=== PATIENT | female | born 1935 | race Caucasian/White ===

== ENCOUNTER → 2019-10-20 | Outpatient (CLI) | payer MEDICARE ==
[~2019-10-20] MED LIST: ASPIR-LOW81 MG PO; ASPIRIN 32325 MG/TAB PO; FISH OIL CONC1000 MG PO; FISH OIL CONCEN1 SG1 PO; IRON325 M1 PO; LEVOTHYROXIN0.088 MG PO; LEVOXYL0.088 MG PO; LIPITOR20 MG PO; LISINOPRIL/HCTZ1 TA2 PO; NITROSTAT0.4 MG/TAB SL; OSCAL 500MG/VI500 MG PO; PLAVIX 75MG TAB75 MG PO; PREDNISONE 5MG5 MG PO; TENORMIN 2525 MG/TAB PO; VITAMIN D; VITAMIN D1000 IU PO; ZESTRIL 5MG5 MG PO
== END ==
LOC: COL.RAD 10:13
DX: Z01.812 Encounter for preprocedural laboratory examination (principal); N28.1 Cyst of kidney, acquired; N18.4 Chronic kidney disease, stage 4 (severe)
CPT/HCPCS: A9585

== ENCOUNTER 2021-01-02 10:36 | Emergency (ER) | payer MEDICARE ==
[~2021-01-02] VITALS: Ht 177.8 cm; Wt 63.6 kg
[2021-01-02 10:40] VITALS: TEMP 96.8
[2021-01-02] MEDS ORDERED: SALONPAS1 EACH TP (11:44)
[2021-01-02 12:13] VITALS: BP 140/71; PULSE 82
== END 2021-01-02 12:15 | disposition home or self-care (01) ==
LOC: COL.ER 10:36
DX: M25.511 Pain in right shoulder (principal); M25.512 Pain in left shoulder; M19.09 Primary osteoarthritis, other specified site; I25.10 Atherosclerotic heart disease of native coronary artery without angina pectoris; I10 Essential (primary) hypertension; Z95.5 Presence of coronary angioplasty implant and graft; Z79.02 Long term (current) use of antithrombotics/antiplatelets; Z79.82 Long term (current) use of aspirin; Z79.890 Hormone replacement therapy

== ENCOUNTER 2021-06-24 09:19 | Day surgery (SDC) | payer MEDICARE ==
[~2021-06-24] VITALS: Ht 177.8 cm; Wt 60.9 kg
[2021-06-24] VITALS (10 sets, daily range): BP systolic 113–166; BP diastolic 47–82; PULSE 50–65; TEMP 98.2
[~2021-06-24 09:19] MED LIST changes: +LEVOXYL0.075 MG PO; -LEVOXYL0.088 MG PO; +SALONPAS1 EACH TP
[2021-06-24] MEDS ORDERED: CENTRUM SILVER1 CTB PO (10:14)
[2021-06-24] MEDS ORDERED: OS-CAL 500 + D1 TAB (10:15)
[2021-06-24 10:38] LABS: MEAN CELL VOLUME 94 fl (80.0-100.0); MEAN CORPUSCULAR HEMOGLOBIN 30 pg (27.0-31.0); MEAN CORPUSCULAR HGB CONC 32 g/dl (33.0-37.0); PLATELET COUNT 182 K/mm3 (130-400); RED BLOOD COUNT 3.67 M/mm3 (4.10-5.30); REDCELL DISTRIBUTION WIDTH-CV 14.7 % (11.5-14.5)
[2021-06-24 10:45] LABS: HEMATOCRIT 34.3 % (37.0-47.0)
[2021-06-24 10:46] LABS: PROTHROMBIN TIME 11.6 SECONDS (9.7-12.8)
[2021-06-24 10:48] LABS: PARTIAL THROMBOPLASTIN TIME 27.6 SECONDS (26.0-37.0)
[2021-06-24 10:54] LABS: CALCIUM 10.3 mg/dL (8.4-10.2); CREATININE, serum 1.38 (0.52-1.25); POTASSIUM 3.6 mmol/L (3.4-5.0)
--- NOTE | 2021-06-24 12:36 | NUR ---
Patient noted to have large purple bruising to right radial area of wrist. Soft to touch, patient states "That's been there a little bit".
--- NOTE | 2021-06-24 13:00 | NUR ---
PT TO EU 11 VIA BED FROM ROSE GRADER, PT IS AWAKE, FOLLOWS DIRECTIONS, ROSE GRADER NURSE STATES DR CALLED SON ON RESULTS. CALL LIGHT IN REACH, PT RESTS QUIETLY IN BED, DECLINES DRINK AT THIS TIME
[2021-06-24] MEDS ORDERED: LIPITOR20 MG PO (13:01)
[2021-06-24] MEDS ORDERED: COREG 3.123.125 MG/T PO (13:01)
[2021-06-24] MEDS ORDERED: PRINIVIL5 MG PO (13:02)
--- NOTE | 2021-06-24 14:00 | NUR ---
PT CON'T TO REST IN BED, HAS NO C/O, OFFERED WATER, DECLINES AT THIS TIME
--- NOTE | 2021-06-24 15:00 | NUR ---
STARTING RELEASE OF BAND 2CC AT A TIME, NO BLEEDING OR SWELLING NOTED. BAND RELEASED FULLY AFTER 30 MIN. BANDAID ON WITH COBAN, PT SITS ON SIDE OF BED, TOLERATES WELL, WALKED TO B/R TO VOID, GAIT STEADY,
--- NOTE | 2021-06-24 15:45 | NUR ---
IV D'CD INTACT, PT UP AND DRESSED, SON HERE FOR MERCURY PURIFIER AND REVIEW OF DISCHARGE ORDERS, REVIEWED NEXT APPT, ALSO NEW RX TO PICKUP AT PHARMACY AND CHANGE OF LIPITOR DOSE EXPLAINED. ALSO REVIEWED ACTIVITY FOR PT AND LIMIT USE OF RIGHT WRIST WITH VERBAL UNDERSTANDING. PT HAS NO C/O OR QUESTIONS DISCHARGED VIA W/C TO CAR WITH SON AT 1610
== END 2021-06-24 16:10 | disposition home or self-care (01) ==
LOC: COL.CAR 09:19
PROVIDERS: Internal Medicine Cardiovascular Disease
DX: I25.10 Atherosclerotic heart disease of native coronary artery without angina pectoris (principal); I34.0 Nonrheumatic mitral (valve) insufficiency; I13.10 Hypertensive heart and chronic kidney disease without heart failure, with stage 1 through stage 4 chronic kidney disease, or unspecified chronic kidney disease; N18.4 Chronic kidney disease, stage 4 (severe); I73.9 Peripheral vascular disease, unspecified; I42.9 Cardiomyopathy, unspecified; I87.2 Venous insufficiency (chronic) (peripheral); E78.2 Mixed hyperlipidemia; E03.9 Hypothyroidism, unspecified; Z20.822 Contact with and (suspected) exposure to COVID-19; Z79.890 Hormone replacement therapy; Z79.82 Long term (current) use of aspirin; Z79.899 Other long term (current) drug therapy
CPT/HCPCS: C1769; J1644; J2250; J3010; Q9967

== ENCOUNTER 2023-01-03 17:43 | Inpatient (IN) | payer MEDICARE ==
[~2023-01-03] VITALS: Ht 160 cm; Wt 60.9 kg
[~2023-01-03 17:43] MED LIST changes: -ASPIRIN 32325 MG/TAB PO; +ASPIRIN 81M81 MG/TA2 PO; +CENTRUM SILVER1 CTB PO; +COREG 3.123.125 MG/T PO; +EPA FISH OIL1 SGL PO; -FISH OIL CONCEN1 SG1 PO; +OS-CAL 500 + D1 TAB; +PRINIVIL5 MG PO
[2023-01-03 19:23] LABS: BASO % 0.3 % (0.0-2.0); EOS # 0.2 K/mm3 (0.0-0.7); EOS % 1.3 % (0.0-4.0); GRAN # 9.4 K/mm3 (1.4-6.5); GRAN % 71.9 % (42.2-75.2); LYMPH % 15.4 % (20.0-51.0); MEAN CELL VOLUME 91 fl (80.0-100.0); MEAN CORPUSCULAR HEMOGLOBIN 30 pg (27-31); MEAN CORPUSCULAR HGB CONC 33 g/dl (33.0-37.0); MEAN PLATELET VOLUME 11.9 fl (7.4-10.4); MONO # 1.4 K/mm3 (0.1-0.6); MONO % 10.5 % (1.7-9.3); PLATELET COUNT 250 K/mm3 (130-400); REDCELL DISTRIBUTION WIDTH-CV 13.5 % (11.5-14.5)
[2023-01-03 19:25] LABS: HEMATOCRIT 33.5 % (37.0-47.0)
[2023-01-03 19:39] LABS: ALBUMIN 2.9 gm/dL (3.4-4.8); C-REACTIVE PROTEIN 9.02 mg/dL (0.00-0.50); CALCIUM 10.4 mg/dL (8.4-10.2); CREATININE, serum 2.05 mg/dL (0.57-1.11); POTASSIUM 3.6 mmol/L (3.5-4.5); TOTAL PROTEIN 7.9 gm/dL (6.2-8.1)
[2023-01-03 20:20] LABS: ERYTHROCYTE SEDIMENTATION RATE 123 mm/hr (0-30)
[2023-01-03 22:48] VITALS: BP 106/62; PULSE 88; TEMP 98.1
[2023-01-03] MEDS ORDERED: SANTYL30 TP (23:11)
[2023-01-03] MEDS ORDERED: VITAMIND3 5000 PO (23:11)
[2023-01-03] MEDS ORDERED: LASIX 20MG TABL20 MG PO (23:14)
[2023-01-03] MEDS ORDERED: KLOR-CON SPRIN10 MEQ PO (23:14)
[2023-01-03] MEDS ORDERED: NATURAL E400 IU PO (23:17)
[2023-01-03] MEDS ORDERED: IRON TABLETS325 MG PO (23:17)
[2023-01-03] MEDS ORDERED: LIPITOR 80MG80 MG PO (23:19)
[2023-01-03] MEDS ORDERED: SYNTHROID0.075 MG/T PO (23:20)
[2023-01-03] MEDS ORDERED: TYLENOL 325MG325 MG PO (23:21)
--- NOTE | 2023-01-03 23:32 | NUR ---
Patient arrived to medical unit from ER at approximately 2235. Alert, disoriented to time, place, and situation. Denies pain and discomfort. Would to left medical ankle, open to air. Black eschar present. Has small open sores to top of right foot. Received IV ABX per orders in ER. In bed with call light within reach. High fall risk precautions in place.
--- NOTE | 2023-01-04 01:12 | NUR ---
Vancomycin Initial Dosing Pharmacy Note Ordering provider: Ramakrishna James MD Indication/duration: Concern for osteomylitis x 7 days Relevant comorbidities: LABS: WBC = 13.0, SCr = 2.05 Recommendation: Will draw troughs and follow levels. Loading dose: 1 gram Maintenance dose: 500 mg every 24 hours Trough goal: 15-20 ug/mL
[2023-01-04 03:00] LABS: BASO % 0.4 % (0.0-2.0); EOS # 0.2 K/mm3 (0.0-0.7); EOS % 1.8 % (0.0-4.0); GRAN # 6.3 K/mm3 (1.4-6.5); LYMPH # 1.9 K/mm3 (1.2-3.4); LYMPH % 20.2 % (20.0-51.0); MEAN CELL VOLUME 91 fl (80.0-100.0); MEAN CORPUSCULAR HGB CONC 33 g/dl (33.0-37.0); MEAN PLATELET VOLUME 11.6 fl (7.4-10.4); MONO # 1.2 K/mm3 (0.1-0.6); MONO % 12.1 % (1.7-9.3); PLATELET COUNT 212 K/mm3 (130-400); RED BLOOD COUNT 3.24 M/mm3 (4.10-5.30); REDCELL DISTRIBUTION WIDTH-CV 13.3 % (11.5-14.5)
[2023-01-04 03:04] LABS: HEMATOCRIT 29.5 % (37.0-47.0); HEMOGLOBIN 9.6 g/dl (12.5-16.0); MEAN CORPUSCULAR HEMOGLOBIN 30 pg (27-31)
[2023-01-04 03:07] LABS: INR 1.2 (0.8-3.0); PROTHROMBIN TIME 13.7 SECONDS (9.7-12.8)
[2023-01-04 03:10] LABS: PARTIAL THROMBOPLASTIN TIME 26.1 SECONDS (26.0-37.0)
[2023-01-04 03:13] LABS: CALCIUM 9.5 mg/dL (8.4-10.2); CREATININE, serum 1.81 mg/dL (0.57-1.11); POTASSIUM 3.2 mmol/L (3.5-4.5)
[2023-01-04 03:57] VITALS: BP 125/49; PULSE 55; TEMP 98.2
--- NOTE | 2023-01-04 05:47 | NUR ---
Patient refused had refused lab draw and IV ABX/Heparin drip around 0245. Called son James to help talk with patient, and she became agreeable to have labs drawn and start IV medications. Patient denies pain and discomfort. Voices no questions, needs, or concerns at this time. In bed with call light within reach. High fall risk precautions in place. Bed alarm on.
[2023-01-04 07:55] VITALS: BP 113/38; PULSE 59; TEMP 98.4
--- NOTE | 2023-01-04 07:56 | NUR ---
Patient resting on her side. LLE out of bed. She asks for help to use the commode. Assisted. Getting Hep gtt per orders. Telemetry in place, NSR. Bed alarm on, no further needs at this time. Call light within reach.
--- NOTE | 2023-01-04 09:00 | NUR ---
Patient is resting in bed, family at the bedside. Alert and oriented, telemetry in place, NSR, getting Hep gtt per orders. Awaiting for doctors for further trearment. Assessment completed, meds provided, no other needs at this time, call light within reach.
--- NOTE | 2023-01-04 10:13 | NUR ---
Initial visit; Patient's family greeted Air Valve Repairer and patient said "hello," in a painful sounding voice. She asked Air Valve Repairer to be careful and not touch her leg which was outside the covers off of her bed. Air Valve Repairer asked if she could pray or keep her in Air Valve Repairer's prayers. She agreed to let Air Valve Repairer keep her in her prayers.
--- NOTE | 2023-01-04 10:14 | NUR ---
HEP XA LAB HIGH 1.64 it is stopped and will wait for 2 hrs.
--- NOTE | 2023-01-04 10:57 | NUR ---
DAVON met with the patient and her son, Matt (ph#[phone]), to discuss discharge plan. The patient resides at [facility]. Matt was unsure if the patient is in their assisted living or long-term care. Her PCP is Dr. Luz Szymanski. The patient does not have a DPOA-HC in EMR. Matt states that he believes the patient has one completed and it may designate him and his brother, Dev (ph#[phone]). He states that the patient is and that she has three children: himself, Dev, Junior, and one step-child, Sha. Matt states that the plan is for the patient to return back to [facility] upon discharge. 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 DAVON contacted Ye at [facility] and confirmed the patient resides with them in LTC. DAVON faxed updates to [facility] and requested a copy of the patient's DPOA-HC. *Discharge plan: [facility]*
[2023-01-04 11:39] VITALS: BP 135/58; PULSE 61; TEMP 98.5
--- NOTE | 2023-01-04 13:00 | NUR ---
Hep gtt restarted per protocol, 250 units less at 1300. Right now 850 units per hr.
[2023-01-04 15:52] VITALS: BP 106/70; PULSE 65; TEMP 97.7
--- NOTE | 2023-01-04 16:01 | NUR ---
HEP XA .94, HEP GTT STOPPED, WILL WAIT FOR 1 HR AND RESTART PER PROTOCOL
[2023-01-04 16:12] LABS: PARTIAL THROMBOPLASTIN TIME 122.8 SECONDS (26.0-37.0)
[2023-01-04 19:10] VITALS: BP 134/78; PULSE 70; TEMP 97.6
--- NOTE | 2023-01-04 22:37 | NUR ---
Patient assessed around 1939. Given PRN Morphine for pain. Continued to have pain and given PRN Roxicodone around 2124. Continues on Heparin drip for DVT to LLE per orders. Received IV ABX per orders. Son in room, all questions answered. Patient in bed with call light within reach. High fall risk precautions in place.
[2023-01-05] VITALS (7 sets, daily range): BP systolic 107–154; BP diastolic 41–57; PULSE 56–63; TEMP 97.9–98.8
--- NOTE | 2023-01-05 05:57 | NUR ---
Patient confused during the night, but easily redirected and pleasant. Continues on Heparin drip per orders. Received IV ABX per orders. Voices no questions, needs, or concerns at this time. In bed with call light within reach. High fall risk precautions in place. Bed alarm on.
--- NOTE | 2023-01-05 08:00 | NUR ---
PATIENT AWAKE AND ALERT, RESTING IN BED. ORIENTED TO SELF AND PLACE, UNKNOWN YEAR. BED ALARM ON. PATIENT DENEIS ANY NEEDS OR COMPLAINTS AT THIS TIME.
--- NOTE | 2023-01-05 08:50 | NUR ---
PATIENT HEPARI DRIP STOPPED PER MD VERBAL ORDER.
--- NOTE | 2023-01-05 10:27 | NUR ---
SPOKE WITH DR MADDEN. ORTHO AWARE AND MY DO L BKA. OK TO GIVE PLAVIX ORTHO IS NOT CONCERNED WITH THAT.
--- NOTE | 2023-01-05 11:45 | NUR ---
THIS RN RECIEVED CALL FROM ORTHO VJ Slaughter. PATIENT MAY RESUME DIET, AND BE PO AT MIDNIGHT FOR L BKA TOMORROW BY DR CHRISTIANSON.
--- NOTE | 2023-01-05 14:29 | NUR ---
DAVON received the patient's DPOA-HC by email from [facility]. DAVON placed the document in the patient's chart. The patient's DPOA-HC is her son, Dmitry. The alternate is her other son, Matt. The patient's sons were interested in completing a General DPOA and needed a notary. DAVON contacted mazin Mcclellan in medical records. Vy reports that she will meet with the patient and her sons for the document. DAVON faxed updates to [facility].
--- NOTE | 2023-01-05 16:06 | NUR ---
SURGERY AND ANESTHESIA CONSENT RECIEVED VERBAL OVER PHONE FROM PATINETS SON ELISE VELASCO, TO PERFORM L BKA TOMORROW BY DR CHRISTIANSON, BLOOD CONSENT OBTAINED WELL GENERAL ANESTHESIA. 2ND WITNESS BY JONATHAN STARKEY. FORMS ON CHART.
[2023-01-06] VITALS (9 sets, daily range): BP systolic 96–133; BP diastolic 41–93; PULSE 53–70; TEMP 97.4–98.4
[2023-01-06 06:32] LABS: BASO % 0.3 % (0.0-2.0); EOS # 0.2 K/mm3 (0.0-0.7); EOS % 2.4 % (0.0-4.0); GRAN # 6.5 K/mm3 (1.4-6.5); GRAN % 65.6 % (42.2-75.2); MEAN CELL VOLUME 93 fl (80.0-100.0); MEAN CORPUSCULAR HGB CONC 32 g/dl (33.0-37.0); MONO # 1.1 K/mm3 (0.1-0.6); MONO % 11.3 % (1.7-9.3); PLATELET COUNT 253 K/mm3 (130-400); RED BLOOD COUNT 3.23 M/mm3 (4.10-5.30); REDCELL DISTRIBUTION WIDTH-CV 13.5 % (11.5-14.5)
[2023-01-06 06:39] LABS: CALCIUM 9.3 mg/dL (8.4-10.2); CREATININE, serum 1.4 mg/dL (0.57-1.11); MAGNESIUM 1.9 mg/dL (1.6-2.6); POTASSIUM 3.5 mmol/L (3.5-4.5)
[2023-01-06 06:48] LABS: HEMOGLOBIN 9.5 g/dl (12.5-16.0); MEAN CORPUSCULAR HEMOGLOBIN 29 pg (27-31)
--- NOTE | 2023-01-06 07:40 | NUR ---
PATIENT TAKEN TO SURGERY. PATIENTS SON WAS AT BEDSIDE AND FOLLOWED PRE OP NURSE TO WAITING ROOM.
[2023-01-07] VITALS (7 sets, daily range): BP systolic 96–122; BP diastolic 36–54; PULSE 54–112; TEMP 97.5–98.8
--- NOTE | 2023-01-07 05:00 | NUR ---
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 PT WANTED TO GO HOME. PT STATED SHE FELT FINE AND DIDN'T UNDERSTAND WHY SHE COULDN'T JUST GO HOME. AFTER EXPLAINING OVER AND OVER WHY SHE SHOULDN'T GO HOME AFTER MAJOR SURGERY, WITH LOW B/P'S, POSSIBLE PAIN MANAGEMENT (PT STATES SHE HAD, LITTLE TO NO PAIN AT THAT TIME AND REFUSED PAIN MEDS), ETC. HOSPITALIST CALLED. HOSPITALIST TO BEDSIDE. HOSPITALIST ALSO EXPLAINED WHY IT WAS NOT A GOOD IDEA TO GO HOME AT THIS TIME. PT EVENTUALLY AGREED TO STAY. PT REMOVED HER TELE 3 TIMES AND PULLED OUT HER DRAIN. ON-CALL ORTHO PA CALLED. PA STATED IT WAS OK LONG DRESSING INTACT. DRESSING WAS INTACT. AN HOUR LATER, PT UNRAVELLED THE BOTTOM HALF OF THE SHIRA WRAP, STATING IT WAS TOO TIGHT. BKA SITE RE-WRAPPED AND I EXPLAINED THE IMPORTANT OF NOT UNWRAPPING HER SURGICAL SITE. PT STARTED COMPLAINING OF TINGLING AND BURNING TO BKA. PT OFFERED AND GIVEN ROXICODONE. HOSPITALIST CALLED AND REQUEST MADE FOR GABAPENTIN. GABAPENTIN ORDERED AND GIVEN. PT ALSO GIVEN MORPHINE, ROXICODONE AND SCHEDULE TYLENOL DURING SHIFT TO CONTROLL PAIN. BED ALARM ON. FALL PRECAUTIONS IN PLACE. CALL LIGHT WITHIN REACH.
[2023-01-07 08:32] LABS: CREATININE, serum 1.58 mg/dL (0.57-1.11); POTASSIUM 3.8 mmol/L (3.5-4.5)
--- NOTE | 2023-01-07 11:35 | NUR ---
Patient continues to be very drowsy. Is A&Ox3 but falls asleep during questions. Patient states the pain medication she took "knocked her on her butt." VS stable. BLood sugar WNL. Did speak to Dr Wilkes about status-no new orders received.
--- NOTE | 2023-01-07 11:51 | NUR ---
Clinical Project Coordinator faxed updates to [facility].
--- NOTE | 2023-01-07 13:00 | NUR ---
Patient is much more awake now and ready to eat lunch. States she just felt so tired this AM. Denies current needs. Call light in reach. Will monitor.
--- NOTE | 2023-01-07 15:00 | NUR ---
Patient called c/o pain to left stump-rating pain 7/10 on pain scale-described as constant throbbing/burning. Oxycodone given per dr dobson.
--- NOTE | 2023-01-07 18:33 | NUR ---
Patient had an uneventful day. Slept for most of the day. VS remain stable. Received oxycodone x1 for pain. Dressing to left stump remains CDI. VS remain stable. Denies nausea/shortness of breath. Stump elevated on pillow. Family is at bedside. Call light in reach. Will monitor.
--- NOTE | 2023-01-07 22:30 | NUR ---
Patient assessed around 1999. Complained of level 10 pain to left leg. Given PRN Roxicodone. Continued to have pain around 2114, and given PRN Morphine at requested around 2114. Dressing to left stump CDI. Ice placed to area. Redness to bottom, repositioned in bed. Voices no further questions, needs, or concerns at this time. In bed with call light within reach. High fall risk precautions in place. Bed alarm on.
--- NOTE | 2023-01-07 23:36 | NUR ---
Patient stated she needed to go to the bathroom, but only having small amounts of urine on bedpan. Assisted to bedside commode with two assist. Did well with transfer, and had large amount of urine output. Stated she felt better and assisted back to bed.
[2023-01-08] VITALS (12 sets, daily range): BP systolic 92–133; BP diastolic 26–48; PULSE 58–74; TEMP 98–99.2
--- NOTE | 2023-01-08 05:39 | NUR ---
Patient has had no further complaints of pain or discomfort this shift. Took scheduled Acetaminophen per orders. Voices no questions, needs, or concerns at this time. In bed with call light within reach. Bed alarm on.
[2023-01-08 06:38] LABS: POTASSIUM 3.4 mmol/L (3.5-4.5)
--- NOTE | 2023-01-08 07:36 | NUR ---
PATIENT ALERT AND ORIENTED ADN AWAKE, RESTING IN BED. PATIENT DENIES PAIN AT THIS TIME. BED ALARM ON. L STUMP ELEVATED ON A PILLOW. CALL [facility] WITH IN REACH.
[2023-01-08 09:54] LABS: BASO % 0.3 % (0.0-2.0); EOS # 0.2 K/mm3 (0.0-0.7); GRAN # 7.7 K/mm3 (1.4-6.5); GRAN % 66.4 % (42.2-75.2); LYMPH # 2.2 K/mm3 (1.2-3.4); LYMPH % 19.2 % (20.0-51.0); MEAN CELL VOLUME 93 fl (80.0-100.0); MEAN CORPUSCULAR HGB CONC 32 g/dl (33.0-37.0); MEAN PLATELET VOLUME 12.2 fl (7.4-10.4); MONO # 1.4 K/mm3 (0.1-0.6); MONO % 11.7 % (1.7-9.3); PLATELET COUNT 209 K/mm3 (130-400); RED BLOOD COUNT 2.36 M/mm3 (4.10-5.30)
[2023-01-08 09:59] LABS: CALCIUM 8.2 mg/dL (8.4-10.2); CREATININE, serum 1.39 mg/dL (0.57-1.11)
[2023-01-08 10:06] LABS: HEMATOCRIT 21.9 % (37.0-47.0); HEMOGLOBIN 6.9 g/dl (12.5-16.0); MEAN CORPUSCULAR HEMOGLOBIN 29 pg (27-31)
--- NOTE | 2023-01-08 10:39 | NUR ---
kami son and ta delgado called by this. PHONE CALL MADE BY THIS RN AND FIRE FIGHTER CRASH FIRE AND RESCUE , VERBAL CONSENT GIVEN OVER THE PHOONE. 2 RN COSNENT WITNESSED.
--- NOTE | 2023-01-08 11:56 | NUR ---
SPOKE WITH PATIENT, SHE IS AWARE AND AGREES TO BLOOD TRANSFUSION. PATIENT DENIES ANY COMPLAINTS OR PAIN AT THIS TIME. CALL LIGHT WITHIN REACH, BED ALARM ON.
--- NOTE | 2023-01-08 13:46 | NUR ---
SNF information faxed to [facility] for authorization.
--- NOTE | 2023-01-08 15:04 | NUR ---
Due to the patient being from the [facility], it is the most appropriate for her to return to that facility. Patient and patients son Rodri updated. Both verbalize their understanding.
--- NOTE | 2023-01-08 16:00 | NUR ---
PATIENTS BLOOD TRANSFUSION COMPLETED. PATIENT DENIED ANY SIGNS OR SYMPTOMS OF A REACTION. PATIENT IS AWAKE AND ALERT, RESTING IN BED. PATIETN DENIES ANY NEEDS OR COMPLAINTS AT THIS TIME. BED ALARM ON. CALL LIGHT WTIHIN REACH, L LEG ELEVATED ON A PILLOW. PATIENT DENIES ANY PAIN AT THIS TIME. EACH TIME RN ASKS PATIENT SAYS "WELL IM NOT FEELING ANY PAIN RIGHT NOW."
[2023-01-08 17:39] LABS: HEMATOCRIT 29.4 % (37.0-47.0); HEMOGLOBIN 9.5 g/dl (12.5-16.0)
--- NOTE | 2023-01-08 22:48 | NUR ---
Patient assessed around 193. Denied pain and discomfort. Dressing to left BKA site is CDI. Elevated on pillow. Contnues on IV fluid and ABX per orders. Patient started having loose stools. PCT reported 4 in about a 2 hour period. VJ Desouza notified, and GI panel orderd as well as SOB. SOB negative. GI panel pending at this time. In bed with call light within reach. High fall risk precautions in place.
[2023-01-09 03:46] VITALS: BP 118/45; PULSE 61; TEMP 99.9
--- NOTE | 2023-01-09 05:53 | NUR ---
Patient given PRN Roxicodone once this shift. In bed with call light within reach. High fall risk precautions in place. Bed alarm on.
[2023-01-09 06:48] LABS: POTASSIUM 4.4 mmol/L (3.5-4.5)
[2023-01-09 06:55] LABS: BASO # 0.1 K/mm3 (0.0-0.2); BASO % 0.4 % (0.0-2.0); EOS # 0.3 K/mm3 (0.0-0.7); EOS % 2.7 % (0.0-4.0); GRAN # 7.8 K/mm3 (1.4-6.5); GRAN % 67.3 % (42.2-75.2); LYMPH % 17.3 % (20.0-51.0); MEAN CELL VOLUME 92 fl (80.0-100.0); MEAN CORPUSCULAR HGB CONC 33 g/dl (33.0-37.0); MEAN PLATELET VOLUME 12.4 fl (7.4-10.4); MONO # 1.4 K/mm3 (0.1-0.6); MONO % 11.8 % (1.7-9.3); PLATELET COUNT 183 K/mm3 (130-400); RED BLOOD COUNT 2.78 M/mm3 (4.10-5.30); REDCELL DISTRIBUTION WIDTH-CV 14.4 % (11.5-14.5)
[2023-01-09 06:57] LABS: HEMATOCRIT 25.5 % (37.0-47.0); HEMOGLOBIN 8.4 g/dl (12.5-16.0); MEAN CORPUSCULAR HEMOGLOBIN 30 pg (27-31)
[2023-01-09 07:22] VITALS: BP 113/45; PULSE 59; TEMP 98.2
[2023-01-09 08:23] LABS: CREATININE, serum 1.19 mg/dL (0.57-1.11)
--- NOTE | 2023-01-09 08:40 | NUR ---
Shift assessment complete. Patient A & O x 4. REsting in bed. NS 50 infusing at 50ml/HR to left forearm. Denies any pain. Bed alarm on and call light within reach.
[2023-01-09 11:38] VITALS: BP 120/48; PULSE 62; TEMP 98
--- NOTE | 2023-01-09 13:58 | NUR ---
Left AC IV site infiltrated. DCd at this time cath intact. 20g placed to right AC x1 attempt by this nurse. IV fluids restarted at this time.
--- NOTE | 2023-01-09 14:05 | NUR ---
Called c/o pain to left lower extremity-described as constant burning/throbbing-rating pain 8/10 on pain scale. Oxycodone given per dr dobson.
--- NOTE | 2023-01-09 15:37 | NUR ---
Respiratory Equipment Assistant followed up with [facility] and faxed in PT/OT evals. SW was advised that they received all needed documents and are reviewing. DAVON updated Ye at [facility]. As of 1540, no word from [facility] on approval.
[2023-01-09 15:49] VITALS: BP 111/72; PULSE 76; TEMP 98.9
--- NOTE | 2023-01-09 18:45 | NUR ---
Patient had an uneventful day. New IV site placed due to infiltration. VS remained stable. Dressing to left lower extremity CDI. Received oxycodone x1 for pain. Denies current needs. Call light in reach. Will monitor.
[2023-01-09 19:36] VITALS: BP 112/85; PULSE 77; TEMP 98
[2023-01-10 00:38] VITALS: BP 111/47; PULSE 64; TEMP 98.6
[2023-01-10 03:50] VITALS: BP 122/60; PULSE 62; TEMP 98.8
[2023-01-10 07:59] VITALS: BP 126/43; PULSE 58; TEMP 98.6
[2023-01-10 10:21] LABS: BASO % 0.2 % (0.0-2.0); EOS # 0.2 K/mm3 (0.0-0.7); EOS % 1.9 % (0.0-4.0); GRAN # 9.3 K/mm3 (1.4-6.5); GRAN % 75.1 % (42.2-75.2); LYMPH # 1.6 K/mm3 (1.2-3.4); LYMPH % 13.3 % (20.0-51.0); MEAN CELL VOLUME 93 fl (80.0-100.0); MEAN CORPUSCULAR HGB CONC 32 g/dl (33.0-37.0); MEAN PLATELET VOLUME 11.9 fl (7.4-10.4); MONO # 1.1 K/mm3 (0.1-0.6); MONO % 8.9 % (1.7-9.3); PLATELET COUNT 198 K/mm3 (130-400); REDCELL DISTRIBUTION WIDTH-CV 14.9 % (11.5-14.5)
[2023-01-10 10:25] LABS: HEMATOCRIT 24.2 % (37.0-47.0); HEMOGLOBIN 7.8 g/dl (12.5-16.0); MEAN CORPUSCULAR HEMOGLOBIN 30 pg (27-31)
[2023-01-10 10:36] LABS: CREATININE, serum 1.07 mg/dL (0.57-1.11); POTASSIUM 4.3 mmol/L (3.5-4.5)
[2023-01-10 11:33] VITALS: BP 128/42; PULSE 68; TEMP 99.1
--- NOTE | 2023-01-10 15:25 | NUR ---
Fireworks Inspector contacted [facility] twice, once in the morning and once in the afternoon, to check on authorization status. DAVON was told the clinicals were with the Leather Piece Inspector for review. DAVON contacted Ye to provide update on auth. DVAON also faxed clinical updates. DAVON also contacted patient's son, Matt with update.
[2023-01-10 16:56] VITALS: BP 131/59; PULSE 66; TEMP 98.4
[2023-01-10 17:18] LABS: HEMATOCRIT 26.2 % (37.0-47.0); HEMOGLOBIN 8.1 g/dl (12.5-16.0)
--- NOTE | 2023-01-10 18:00 | NUR ---
Shift assessment performed. Scheduled medications given. VSS. Patient alert but only partially oriented. Has denied pain this shift and has only recieved scheduled tylenol. Patient currently resting in bed, family at the bedside. Denies any further needs at this time. Call light in reach. Fall percautions in place.
[2023-01-10 20:15] VITALS: BP 111/42; PULSE 59; TEMP 98.9
--- NOTE | 2023-01-10 21:32 | NUR ---
Patient assessed around 1999. Complained of level 6 pain to LBKA site, as well as left knee. Given PRN Roxicodone as requested for pain. Has IV fluids running per orders. Voices no questions, needs, or concerns at this time. In bed with call light within reach. High fall risk precautions in place. Bed alarm on.
[2023-01-11 00:02] VITALS: BP 118/48; PULSE 62; TEMP 97.7
[2023-01-11 04:01] VITALS: BP 121/55; PULSE 55; TEMP 98.4
--- NOTE | 2023-01-11 05:38 | NUR ---
Patient has had no further complaints of pain or discomfort this shift. Voice no questions, needs, or concerns at this time. In bed with call light within reach. High fall risk precautions in place.
[2023-01-11 06:56] LABS: BASO % 0.2 % (0.0-2.0); EOS # 0.3 K/mm3 (0.0-0.7); EOS % 3.2 % (0.0-4.0); GRAN # 6.7 K/mm3 (1.4-6.5); GRAN % 67.8 % (42.2-75.2); LYMPH # 1.9 K/mm3 (1.2-3.4); LYMPH % 19.2 % (20.0-51.0); MEAN CELL VOLUME 96 fl (80.0-100.0); MEAN CORPUSCULAR HGB CONC 32 g/dl (33.0-37.0); MEAN PLATELET VOLUME 12.4 fl (7.4-10.4); MONO # 0.9 K/mm3 (0.1-0.6); MONO % 9.2 % (1.7-9.3); PLATELET COUNT 188 K/mm3 (130-400); RED BLOOD COUNT 2.41 M/mm3 (4.10-5.30); REDCELL DISTRIBUTION WIDTH-CV 14.9 % (11.5-14.5)
[2023-01-11 07:03] LABS: CALCIUM 8.2 mg/dL (8.4-10.2); CREATININE, serum 0.95 mg/dL (0.57-1.11); POTASSIUM 4.1 mmol/L (3.5-4.5)
[2023-01-11 07:09] LABS: HEMATOCRIT 23.1 % (37.0-47.0); HEMOGLOBIN 7.3 g/dl (12.5-16.0); MEAN CORPUSCULAR HEMOGLOBIN 30 pg (27-31)
[2023-01-11 07:44] VITALS: BP 128/49; PULSE 61; TEMP 98.1
--- NOTE | 2023-01-11 08:00 | NUR ---
Assessment complete. A&Ox3. VS stable. Denies nausea. Short of breath with activity. Currently on O2@2.5L/NC. States she is sore in her abdomen and ribs from coughing. Noted to have 2+ edema to lower extremities. Heparin gtt infusing at 1150 units per hour to left hand IV without difficulty. Plan of care discussed for this shift to include meds, lab draws for heparin gtt and doctors rounds. Verbalizes understanding/denies questions/concerns. Call light in reach. Will monitor.
[2023-01-11] MEDS ORDERED: PLAVIX 75MG TAB75 MG PO (08:12)
[2023-01-11] MEDS ORDERED: LIPITOR 80MG80 MG PO (08:12)
[2023-01-11] MEDS ORDERED: EPA FISH OIL1 SGL PO (08:12)
[2023-01-11] MEDS ORDERED: NITROSTAT0.4 MG/TAB SL (08:12)
[2023-01-11] MEDS ORDERED: IRON TABLETS325 MG PO (08:12)
[2023-01-11] MEDS ORDERED: COREG 3.123.125 MG/T PO (08:12)
[2023-01-11] MEDS ORDERED: OS-CAL 500 + D1 TAB PO (08:13)
[2023-01-11] MEDS ORDERED: PRINIVIL5 MG PO (08:13)
[2023-01-11] MEDS ORDERED: NEURONTIN300 MG/CAP PO (08:13)
[2023-01-11] MEDS ORDERED: TYLENOL 325MG325 MG PO (08:13)
[2023-01-11] MEDS ORDERED: ELIQUIS 5MG PO (08:14)
[2023-01-11] MEDS ORDERED: LASIX 20MG TABL20 MG PO (08:14)
[2023-01-11] MEDS ORDERED: SYNTHROID0.075 MG/T PO (08:15)
[2023-01-11] MEDS ORDERED: KLOR-CON SPRIN10 MEQ PO (08:15)
[2023-01-11] MEDS ORDERED: NATURAL E400 IU PO (08:16)
[2023-01-11] MEDS ORDERED: CENTRUM SILVER1 CTB PO (08:16)
[2023-01-11] MEDS ORDERED: VITAMIND3 5000 PO (08:16)
--- NOTE | 2023-01-11 09:42 | NUR ---
Pyridine Operator collaborated with Ye at [facility] due to this Patient's insurance approval for placment. Ye reported that [facility] trnsportation can merchandise pickup/receiving associate at 1430 on this day. DAVON collaborated with nurse, Lorraine, to ensure that discharge can be completed and transfer will be prepared by that time. DAVON faxed D/C orders to Ye and completed IM paperwork with patient, providing one copy and placing a copy in PT chart. DAVON contacted Patient's family to notify them of this transfer. Family was agreeable with no concerns.
[2023-01-11 11:15] VITALS: BP 115/46; PULSE 72; TEMP 98.7
[2023-01-11 12:59] VITALS: BP 115/46; PULSE 72; TEMP 98.7
--- NOTE | 2023-01-11 16:57 | NUR ---
Patient dischcarged to [facility] at this time per order. Packet printed an given to transport. Report called to receiving nurse. INT DCd at this time cath intact. Escorted off floor in wheelchair with [facility] staff.
== END 2023-01-11 14:45 | DRG 239 ==
LOC: COL.ER 17:43 → MEDICAL 21:06
PROVIDERS: Internal Medicine; Nurse Practitioner Family; Orthopaedic Surgery; Personal Emergency Response Attendant; Physician Assistant; ADMIT Student in an Organized Health Care Education/Training Program
PROC: 0Y6J0Z3 Detachment at Left Lower Leg, Low, Open Approach (ICD-10-PCS; principal; 2023-01-06 08:00)
DX: I73.9 Peripheral vascular disease, unspecified (principal); G93.41 Metabolic encephalopathy; L03.116 Cellulitis of left lower limb; E44.1 Mild protein-calorie malnutrition; E87.20 Acidosis, unspecified; I13.0 Hypertensive heart and chronic kidney disease with heart failure and stage 1 through stage 4 chronic kidney disease, or unspecified chronic kidney disease; I50.22 Chronic systolic (congestive) heart failure; N18.4 Chronic kidney disease, stage 4 (severe); L97.329 Non-pressure chronic ulcer of left ankle with unspecified severity; N17.9 Acute kidney failure, unspecified; M86.8X7 Other osteomyelitis, ankle and foot; I82.432 Acute embolism and thrombosis of left popliteal vein; I87.2 Venous insufficiency (chronic) (peripheral); E78.5 Hyperlipidemia, unspecified; E83.52 Hypercalcemia; E87.6 Hypokalemia; I25.10 Atherosclerotic heart disease of native coronary artery without angina pectoris; D63.1 Anemia in chronic kidney disease; Z66 Do not resuscitate; I25.5 Ischemic cardiomyopathy; E03.9 Hypothyroidism, unspecified; Z79.82 Long term (current) use of aspirin; Z79.02 Long term (current) use of antithrombotics/antiplatelets; Z79.890 Hormone replacement therapy; Z79.899 Other long term (current) drug therapy; Z68.23 Body mass index [BMI] 23.0-23.9, adult
CPT/HCPCS: OP; J0690; J1100; J1644; J2270; J2370; J2405; J2543; J2704; J3010; J3370; J3480; J7030; J7050; J7120; P9016

== ENCOUNTER 2023-02-23 10:33 | Day surgery (SDC) | payer MEDICARE ==
[~2023-02-23] VITALS: Ht 162.6 cm; Wt 56.8 kg
[~2023-02-23 10:33] MED LIST changes: +ELIQUIS 5MG PO; +IRON TABLETS325 MG PO; +KLOR-CON SPRIN10 MEQ PO; +LASIX 20MG TABL20 MG PO; +LIPITOR 80MG80 MG PO; +NATURAL E400 IU PO; +NEURONTIN300 MG/CAP PO; +OS-CAL 500 + D1 TAB PO; +SANTYL30 TP; +SYNTHROID0.075 MG/T PO; +TYLENOL 325MG325 MG PO; +VITAMIND3 5000 PO
[2023-02-23 13:04] LABS: BASO % 0.4 % (0.0-2.0); EOS # 0.1 K/mm3 (0.0-0.7); EOS % 1.1 % (0.0-4.0); GRAN # 7.7 K/mm3 (1.4-6.5); GRAN % 77.5 % (42.2-75.2); HEMATOCRIT 32.8 % (37.0-47.0); LYMPH # 1.2 K/mm3 (1.2-3.4); LYMPH % 12.1 % (20.0-51.0); MEAN CELL VOLUME 95 fl (80.0-100.0); MEAN CORPUSCULAR HEMOGLOBIN 29 pg (27-31); MEAN CORPUSCULAR HGB CONC 31 g/dl (33.0-37.0); MEAN PLATELET VOLUME 12.5 fl (7.4-10.4); MONO # 0.9 K/mm3 (0.1-0.6); MONO % 8.6 % (1.7-9.3); PLATELET COUNT 210 K/mm3 (130-400); RED BLOOD COUNT 3.46 M/mm3 (4.10-5.30); REDCELL DISTRIBUTION WIDTH-CV 15.5 % (11.5-14.5)
[2023-02-23 13:24] LABS: BILIRUBIN,TOTAL 0.4 mg/dL (0.2-1.2); CALCIUM 10.6 mg/dL (8.4-10.2); CREATININE, serum 1.31 mg/dL (0.57-1.11); POTASSIUM 3.4 mmol/L (3.5-4.5); TOTAL PROTEIN 6.9 gm/dL (6.2-8.1)
--- NOTE | 2023-02-23 13:25 | NUR ---
Phone call made to Ye at [facility] to provide update.
[2023-02-23 13:31] LABS: TROPONIN-I 0.021 ng/mL (0.00-0.033)
[2023-02-23] MEDS ORDERED: ULTRAM 50MG TAB50 MG PO (13:54)
[2023-02-23] MEDS ORDERED: NORCO 325 MG-7.1 TAB PO (13:54)
[2023-02-23 16:40] VITALS: BP 125/43; PULSE 84; TEMP 97.8
[2023-02-23 16:55] VITALS: BP 128/58; PULSE 82
[2023-02-23 17:10] VITALS: BP 132/54; PULSE 89
--- NOTE | 2023-02-23 19:03 | NUR ---
1540 OUTPT SURGERY ([facility]) RN/UNDERSIGNED IN TO PACU TO ASSIST ASSOCIATE THEATRE PROFESSOR WITH HANDOFF PRIOR TO DC FROM PACU LEVEL1 CARE. PT NOTED TO HAVE IRREGULAR RHYTHM AT THIS TIME (?AFIB-SLOW VR, NEW ONSET), HR 80'S NOTED ON MONITOR. NEW CAR SALES MANAGER RYAN Bowers. NOTIFIED, POST-OP 12L ORDERED, READING AFIB. NORMAL BP/VS ON RA, PT AT PRE-OP BASELINE OTHERWISE, DENIES COMPLAINT. 1600 NEW CAR SALES MANAGER AT BEDSIDE TO ASSESS, VORB FROM NEW CAR SALES MANAGER FOR CARDIO CONSULT AND HOLD PT IN PACU UNTIL CLEARED. 1610, 1625 DR SWAIN CONTACTED, WHO REVIEWED 12L, WHICH HE INTERPRETED SINUS RHYTHM - PT OK TO DC TO SNF ([facility]), NO FURTHER ORDERS. 1625 T/C TO NEW CAR SALES MANAGER WITH UPDATE - OK TO DC FROM PACU TO OUTPT AND THEN HOME ONCE NORMAL CRITERIA MET. PT AND FAMILY UPDATED THRU OUT. PT TO D/C FROM PACU TO SDC/OUTPT AT 1640. CARE OF PT TRANSFERRED TO UNDERSIGNED [facility] [place] RN. TAKEN TO [facility] [place] BAY 2, AND PLACED ON MONITOR. FAMILY BROUGHT TO BEDSIDE.
--- NOTE | 2023-02-23 19:53 | NUR ---
9716-2128: PT TO RECOVERY BAY 2 FROM PACU S/P LEFT BKA FLAP I&D AND SECOND CLOSURE ALERT AND BASELINE, DENIES COMPLAINT, HAS TOLERATE WATER, DRSG AND KNEE IMMOBILIZER IN PLACE/CDI, LEG ELEVATED AND ON ICE, NAD. PLACED ON MONITOR, VSS ON RA. RECEIVED REPORT AND ASSUMED CARE OF PT FROM JAKY CONTEH. FAMILY BROUGHT TO BEDSIDE. PT DECLINING ADDITIONAL PO AT THIS TIME. [facility]IA [facility] NURSE CALLED, REPORT GIVEN, TRNASPORT ARRANGED. PT UPDATED. PT HAS REMAINED A&O, NAD, VSS ON RA, TOLERATING PO, IS WITHOUT SIGNIFICANT COMPLAINT THRU OUT STAY. IV D/C'D. D/C INSTRUCTIONS, ANY FOLLOW UP REVIEWED AND HANDED TO PT/FAMILY. ALL QUESTIONS AND CONCERNS ADDRESSED TO PT SATISFACTION. TAKEN TO EXIT VIA W/C WITH ALL BELONGINGS AND PAPERWORK IN HAND, HAND OFF TO SNF TRANSPORT. FAMILY TO FOLLOW HER BACK.
[2023-02-23 20:03] VITALS: BP 112/52; PULSE 89; TEMP 97.2
== END 2023-02-23 17:20 ==
LOC: COL.ER 10:33 → SDCO 13:38
PROVIDERS: Emergency Medicine
DX: T87.81 Dehiscence of amputation stump (principal); I12.9 Hypertensive chronic kidney disease with stage 1 through stage 4 chronic kidney disease, or unspecified chronic kidney disease; N18.4 Chronic kidney disease, stage 4 (severe); I25.10 Atherosclerotic heart disease of native coronary artery without angina pectoris; Z91.81 History of falling; Z89.512 Acquired absence of left leg below knee; Z95.5 Presence of coronary angioplasty implant and graft; W18.30XA Fall on same level, unspecified, initial encounter; Y92.128 Other place in nursing home as the place of occurrence of the external cause; Y93.9 Activity, unspecified
CPT/HCPCS: J0330; J0690; J1100; J2405; J2704; J3010; L1830